=== PATIENT | male | born 1955 | race Caucasian/White ===

== ENCOUNTER 2017-08-20 16:44 | Emergency (ER) | payer BC ==
[~2017-08-20] VITALS: Ht 180.3 cm; Wt 116.1 kg
[~2017-08-20 16:44] MED LIST: LEVAQUIN750 MG PO; ZOFRAN ODT4 MG PO
[2017-08-20 17:57] LABS: HEMATOCRIT 43.4 % (38.0-50.0); HEMOGLOBIN 14.7 G/DL (12.5-16.6); MCH 29.8 PG (29.0-34.0); MCHC 33.9 G/DL (30.0-36.0); PLATELET COUNT 304 K/uL (156-360); RBC DIS.WIDTH-CV 12.9 % (11.8-14.6); RBC DIS.WIDTH-SD 41.4 % (39-53); RED BLOOD COUNT 4.93 M/uL (4.00-5.50); WHITE BLOOD COUNT 15.5 K/uL (4.1-10.2)
[2017-08-20 18:12] LABS: ALBUMIN 4.8 g/dL (3.2-4.8); CHLORIDE 107 mEq/L (99-109); POTASSIUM 4.2 mEq/L (3.7-5.4); SODIUM 142 mEq/L (136-147)
[2017-08-20 18:14] LABS: GLUCOSE 118 mg/dL (70-99)
[2017-08-20 18:15] LABS: TOTAL PROTEIN 7.6 g/dL (6.4-8.3)
[2017-08-20 18:16] LABS: TOTAL BILIRUBIN 0.7 mg/dL (0.0-1.0)
[2017-08-20 18:18] LABS: ALKALINE PHOSPHATASE 111 IU/L (3-129); CREATININE 1.4 mg/dL (0.6-1.3); GFR ESTIMATE (CALCULATED) 55 mL/min/ (58.99-99999)
[2017-08-20 18:19] LABS: UREA NITROGEN (BUN) 24 mg/dL (9-23)
[2017-08-20 18:20] LABS: AST (GOT) 22 IU/L (2-34)
[2017-08-20 18:21] LABS: ALT (GPT) 29 IU/L (3-49)
[2017-08-20] MEDS ORDERED: PERCOCET 5/31 TABLET PO (19:30)
[2017-08-20] MEDS ORDERED: ZOFRAN ODT4 MG PO (19:30)
[2017-08-20] MEDS ORDERED: FLOMAX0.4 MG PO (19:30)
[2017-08-20 19:46] VITALS: BP 134/91
== END 2017-08-20 20:01 | disposition home or self-care (01) ==
LOC: EME 16:44
PROVIDERS: Nurse Practitioner Family
DX: N20.1 Calculus of ureter (principal); I10 Essential (primary) hypertension; Z87.442 Personal history of urinary calculi; Z85.820 Personal history of malignant melanoma of skin; Z88.2 Allergy status to sulfonamides
CPT/HCPCS: 74176; 80053; 85027; 99281; 99285; J1885; J2405; J3010; J7030